=== PATIENT | male | born 1980 | race Hispanic/Latino ===

== ENCOUNTER 2023-10-25 14:11 | Emergency (ER) | payer OTHER ==
[~2023-10-25] VITALS: Ht 162.6 cm; Wt 81.6 kg
[2023-10-25] MEDS ORDERED: 0.9%NACL 1000ML 1,000 ML IV SCH (15:00)
[2023-10-25 15:10] LABS: HEMATOCRIT 39.8 % (42-54); MEAN CORPUSCULAR HEMOGLOBIN 31.2 pg (27.0-33.0); MEAN CORPUSCULAR HGB CONC 34.7 g/dL (32.0-36.0); RED BLOOD CELL COUNT(AUTO) 4.42 MIL/uL (4.50-6.20); RED CELL DISTRIBUTION WIDTH 11.8 % (11.0-15.5); WHITE BLOOD COUNT (AUTO) 6.9 K/uL (4.8-10.8)
[2023-10-25 15:21] LABS: CREATININE 1.1 mg/dL (0.5-1.5); POTASSIUM 3.3 mmol/L (3.5-5.1)
[2023-10-25 16:08] LABS: APPEARANCE,URINE CLEAR (CLEAR); BILIRUBIN,URINE NEGATIVE (NEGATIVE); COLOR,URINE LIGHT-YELLOW (YELLOW); GLUCOSE, URINE (UA) NEGATIVE (NEGATIVE); KETONES,URINE NEGATIVE (NEGATIVE); LEUKOCYTE ESTERASE ,URINE NEGATIVE Leu/uL (NEGATIVE); NITRATE,URINE NEGATIVE (NEGATIVE); OCCULT BLOOD,URINE NEGATIVE (NEGATIVE); PH,URINE 6.5 (5.0-8.0); PROTEIN,URINE NEGATIVE (NEGATIVE); UROBILINOGEN,URINE 0.2 mg/dL (0.2-1.0)
[2023-10-25 16:14] LABS: AMPHET/METH SCREEN,URINE POSITIVE (NEGATIVE); BARBITURATE SCREEN, URINE NEGATIVE (NEGATIVE); BENZODIAZEPINES SCREEN,URINE NEGATIVE (NEGATIVE); CANNABINOID SCREEN,URINE NEGATIVE (NEGATIVE); COCAINE SCREEN,URINE NEGATIVE (NEGATIVE); OPIATE SCREEN,URINE POSITIVE (NEGATIVE); PHENCYCLIDINE SCREEN,URINE NEGATIVE (NEGATIVE)
[2023-10-25 16:29] LABS: ADD UA MICROSCOPIC YES
[2023-10-25 16:39] LABS: BACTERIA,URINE RARE /HPF (None Seen); MUCUS,URINE RARE LPF (None Seen); RBC,URINE 0-1 /HPF (0-1); UNCLASSIFIED CRYSTAL 1 /HPF (None Seen); WBC,URINE 0-1 /HPF (0-1); YEAST,URINE BUDDING FEW /HPF (None Seen)
[2023-10-25] MEDS ORDERED: KCL 20 MEQ ERTAB PO ONE (17:00)
[2023-10-25 17:22] VITALS: BP 140/89; PULSE 53; RESP 16; O2SAT 100
== END 2023-10-25 17:40 | disposition home or self-care (01) ==
LOC: EDH 14:11
DX: F15.90 Other stimulant use, unspecified, uncomplicated (principal); F19.10 Other psychoactive substance abuse, uncomplicated; I10 Essential (primary) hypertension; Z79.899 Other long term (current) drug therapy
CPT/HCPCS: 99283; 96360; 96361; 84484; 80048; 80305; 85027; 36415; 81001; J7030